=== PATIENT | female | born 1985 | race Caucasian/White ===

== ENCOUNTER 2023-05-11 11:47 | Emergency (ER) | payer OTHER, SELFPAY ==
--- NOTE | ~2023-05-11 | XR_ITS ---
EXAMINATION: XR ANKLE, RIGHT CLINICAL INFORMATION: Right ankle pain, injury COMPARISON: None available. TECHNIQUE: AP, lateral, and mortise views of the right ankle. FINDINGS: No fracture. Alignment is anatomic. No erosions. Joint spaces are maintained. Soft tissues are normal. Minimal spurring of the anterior distal tibia at the tibiotalar joint. XR/XR ankle RT min 3V IMPRESSION: No evidence for acute process.
--- NOTE | 2023-05-11 12:15 | ED_ITS ---
HPI - General Adult General Chief complaint: Extremity Injury, Lower Stated complaint: TWISTED R ANKLE Time Seen by Provider: 05/11/23 14:50 Source: patient and EMS Mode of arrival: EMS Limitations: no limitations History of Present Illness HPI narrative: Patient is a 37 year old assigned female at with no reported medical history presenting to the emergency department today with right ankle pain. Patient states that she twisted her right ankle going down stairs and now it hurts. Patient denies any head strike, loss of consciousness, dizziness, lightheadedness, abdominal pain, nausea, vomiting, fever, chills, blurry vision, double vision, loss of vision, chest pain, difficulty breathing, shortness of breath, back pain, night sweats, pain with urination, increased urinary frequency, increased urinary urgency, blood in her urine or stool, syncope or a near syncopal episode, bowel incontinence, bladder incontinence, bowel retention, bladder retention, or any other complaints at this time. Onset (ago): minute(s) Location: right and lower extremity Radiation: non-radiation Severity: mild Severity scale (1-10): 3 Quality: aching and dull Pain Consistency: constant Relieving factors: none Exacerbating factors: none Associated symptoms: denies other symptoms Treatments prior to arrival: none Related Data Allergies Allergy/AdvReac Type Severity Reaction Status Date / Time No Known Allergies Allergy Verified 05/11/23 12:18 Review of Systems Constitutional: Constitutional: Reports no additional constitutional complaints, Denies chills, Denies fever(s) and Denies night sweats Eyes: Eyes: Reports no additional eye complaints, Denies blurry vision, Denies change in vision, Denies diplopia, Denies eye discharge, Denies loss of vision and Denies eye pain ENT: Denies dizziness Cardiovascular: Cardiovascular: Reports no additional cardiovascular complaints, Denies chest pain, Denies lightheadedness, Denies Loss of Consciousness and Denies dyspnea Respiratory: Respiratory: Reports no additional respiratory complaints and Denies dyspnea Gastrointestinal: Gastrointestinal: Reports no additional gastrointestinal complaints, Denies abdominal pain, Denies melena, Denies hematochezia, Denies change in bowel habits and Denies change in stool character Genitourinary: Genitourinary: Denies hematuria, Denies urinary frequency, Denies dysuria, Denies urinary incontinence, Denies urinary hesitancy and Denies urinary urgency Musculoskeletal: Musculoskeletal: Reports no additional musculoskeletal complaints, Denies numbness and Denies tingling Comments: right ankle pain Neurologic: Denies dizziness, Denies loss of vision, Denies numbness and Denies tingling Psychiatric: Psychiatric: Reports no additional psychiatric complaints Endocrine: Endocrine: Reports no additional endocrine complaints Hematologic/Lymphatic: Hematologic/Lymphatic: Reports no additional hematologic/lymphatic complaints Allergic/Immunologic: Allergic/Immunologic: Reports no additional allergic/immunologic complaints PMFSH Past Medical History Attestation statement: The following information was validated with the patient. Source: old records reviewed and nursing notes reviewed Social History Social History Advance Directives: No Advance Directives Information Provided: No Physical Exam ED Vital Signs: Vital Signs - 24 hr 05/11/23 12:17 05/11/23 15:10 Temperature 97.6 F 97.6 F Pulse Rate 94 94 Respiratory Rate 18 20 Blood Pressure 122/86 122/86 Pulse Oximetry 95 95 Oxygen Delivery Method Room Air BMI result Body Mass Index 42.5 Const General: cooperative, no acute distress, alert and awake Nutritional Appearance: well nourished Orientation/consciousness: patient oriented x3 Limitations: no limitations HENMT Head: Yes normal to inspection and Yes atraumatic Ears: hearing grossly normal bilaterally and external ears normal General nose exam: Normal external nose present, no nasal discharge noted and no epistaxis Face and sinus: Yes normal facial exam, No abrasion and No laceration Mouth: Normal oral and palatal mucosa present, no drooling and no muffled voice Eyes General: appearance normal, both eyes and all related structures Periorbital: periorbital findings normal Eyelids: Yes eyelids normal Conjunctivae: conjunctivae normal Pupils: Equal, round and reactive pupils present EOM: EOMs intact bilaterally Neck Neck: Yes normal visual inspection, Yes full ROM and Yes no lymphadenopathy Chest Chest palpation & inspection: normal inspection of the chest Resp Effort & Inspection: normal respiratory effort and able to speak in complete sentences GI Inspection: Yes normal to inspection Neuro General: patient oriented x3 and moves all extremities Cranial nerves: Yes Equal, round and reactive pupils present Cognition (Neuro): normal cognition Motor exam (neuro): 5/5 motor strength present throughout Sensory Exam: Normal double simultaneous stimulation for sensation Coordination: [id number] test normal Extrem Other: minimal swelling present to the right ankle General: Yes full ROM and Yes capillary refill normal Psych Appearance: grossly normal Mental Status: mental status grossly normal Affect: normal affect Attitude: cooperative Thought process: Normal thought process present Thought content: Normal thought content present Insight: Good insight present (Psych) Course Course Course Narrative: RME performed by Digna Riggins PA-C. Patient is a 37 year old assigned female at presenting to the emergency department with right ankle pain. Detailed physical exam and review of systems are deferred to the automotive airconditioning mechanic. Imaging ordered. Patient placed back in the waiting room pending room availability and results. Procedures Orthopedic Splinting/Casting Injury #1: Side: right Lower Extremity Injury Location: ankle Lower Extremity Immobilizer: boot orthosis Medical Decision Making Medical Decision Making MDM Narrative: Patient is a 37 year old assigned female at with no reported medical history presenting to the emergency department today with right ankle pain. Patient's physical exam was as noted in the physical exam portion of this note. Patient's right ankle x-ray showed no acute process. I explained my physical exam findings as well as all test results to the patient. I answered all questions asked by the patient. Patient's right ankle was placed in a walking boot, without incident. Patient's PMS was intact prior to and after boot placement. I stressed the importance of the patient taking her medication as prescribed. I stressed the importance of the patient following up with her primary care provider. I stressed the importance of the patient returning to the emergency department immediately if her symptoms were to worsen or if she were to develop any dizziness, shortness of breath, difficulty breathing, chest pain, blurry vision, loss of vision, nausea, vomiting, abdominal pain, fever, chills, back pain, or any other complaints. Patient verbalized agreement and understanding with this treatment plan and discharge. Differential Diagnosis Differential Diagnoses: The differential diagnosis associated with the presentation includes Right ankle sprain Right ankle strain Right ankle fracture Admission/Observation Consideration of admission/observation: Escalation of care including admission/observation considered Patient would have been admitted to the hospital had her work up had any f indings where hospital admission was appropriate and her clinical presentation warranted hospital admission. Independent Interpretation I performed an independent interpretation of an: Plain X-Ray Interpretation: My interpretation is in agreement with the radiologist's impression of this imaging study. EXAMINATION: XR ANKLE, RIGHT CLINICAL INFORMATION: Right ankle pain, injury COMPARISON: None available. TECHNIQUE: AP, lateral, and mortise views of the right ankle. FINDINGS: No fracture. Alignment is anatomic. No erosions. Joint spaces are maintained. Soft tissues are normal. Minimal spurring of the anterior distal tibia at the tibiotalar joint. XR/XR ankle RT min 3V IMPRESSION: No evidence for acute process. Dictated By: Chu Rashid Signed By: Electronically signed by Chu Rashid 05/11/23 2147 Radiology Impression Discussion of test interpretation with radiology: I have reviewed the radiologist's reading. Independent Historian Clinical information obtained from an independent historian. History obtained from or confirmed by: EMS (EMS provided additional history and confirmed the history provided by the patient.) Discharge Plan Discharge Clinical Impression: Ankle sprain and strain Patient Disposition: Home, Self-Care Instructions: Ankle Sprain (DC) Additional Instructions: Follow up with your primary care provider. Return to the emergency department immediately if your symptoms worsen or if you develop any dizziness, shortness of breath, difficulty breathing, chest pain, blurry vision, loss of vision, nausea, vomiting, abdominal pain, fever, chills, back pain, or any other complaints. Referrals: [facility] [Provider Group] (Call to establish and follow up with a primary care provider. If you already have a primary care provider, please follow up with them.) [facility] Primary Hai Alves [Provider Group] [facility] Primary Ann Alves [Provider Group] Stand Alone Forms: Work/School Release Interventions: ED Discharge Assessment Last Done: 05/11/23 15:10 Discharge Date/Time: 05/11/23 15:20 Print Language: [place]
[2023-05-11 12:17] VITALS: BP 122/86; PULSE 94; RESP 18; TEMP 36.4; O2SAT 95; BMI 42.5
[2023-05-11 15:10] VITALS: BP 122/86; PULSE 94; RESP 20; TEMP 36.4; O2SAT 95
== END 2023-05-11 15:20 | disposition home or self-care (01) ==
LOC: HO.ED 15:15
PROVIDERS: Emergency Provider Emergency Medicine
DX: S93.401A Sprain of unspecified ligament of right ankle, initial encounter (principal); S96.911A Strain of unspecified muscle and tendon at ankle and foot level, right foot, initial encounter; X50.1XXA Overexertion from prolonged static or awkward postures, initial encounter; Y93.9 Activity, unspecified; Y92.9 Unspecified place or not applicable; Y99.9 Unspecified external cause status
CPT/HCPCS: 73610; 99282; 99283

== ENCOUNTER 2025-01-27 16:30 | Emergency (ER) | payer OTHER, SELFPAY ==
--- OUTSIDE RECORDS SUMMARY | 2025-01-27 15:45 | XMS_ITS | Encounter Summary ---
Author Organization [employer] Address [address] [place] [address] Care Team Providers Care Mainframe Software Developer Name Role Phone Lisa Oh MD Primary Care Provider [phone] Reason for Visit * Reason Comments Diabetes Mellitus F/u diabetes Encounter Details Date Type Department Care Team (Late st Contact Info) Description 01/27/2025 3:45 PM EST Office Visit Endocrinology - [place] [address] [place] [address] Tonja Oh PA [address] [place] [address] Type 2 diabetes mellitus without complication, without long-term current use of insulin (CMS/HCC V24, CMS/HCC V28) (Primary Dx) Social History Tobacco Use Types Packs/Day Years Used Date Smoking Tobacco: Every Day Cigarettes Smokeless Tobacco: Never Alcohol Use Standard Drinks/Week Comments Yes 0 (1 standard drink = 0.6 oz pur e alcohol) Housing Instability Answer Date Recorde d Are you worried that in the next 2 months you may not have stable housing? No 05/20/2024 Food Access & Nutrition Answer Date Rec orded Do you have access to a vari ety of food including fruits and vegetables? Patient declined 05/20/2024 Access to Healthcare Answer Date Record ed Within the last 3 months, soha del real many times did you visit the emergency department for your medical care? 2 05/20/2024 Health Literacy Answer Date Recorded How often do you need to hav e someone help you when you read instructions, pamphlets, or other written material from your doctor or pharmacy? Patient declined 05/20/2024 Caregiver: How often do you need to have someone help you when you read instructions, pamphlets, or other written material from your doctor or pharmacy? Not on file 025 Financial Risk Answer Date Recorded How hard is it for you to pa y for the very basics like food, housing, medical care, and air conditioning / heating? Very hard 05/20/2024 Transportation Answer Date Recorded Has the lack of transportati on kept you from meetings, work, or from getting things needed for daily living? No Has the lack of transportati on kept you from medical appointments or from getting medications? No 05/20/2024 Social Isolation Answer Date Recorded How often do you feel lonely or isolated from ose around you? Rarely 05/20/2024 Food Risk Answer Date Recorded Within the past 12 months we worried whether our food would run out before we got money to buy more. Patient declined Within the past 12 months th e food we bought just didn't last and we didn't have money to get more. Often true 05/06 Dependent Care Answer Date Recorded Do you need help finding or paying for care for your loved ones. For example, early childhood or elderly care for an older adult? No 05/20/2024 Education Answer Date Recorded Do you think completing more education or training, like finishing a GED, going to college, or learning a trade, would be helpful for you? No 05/20/2024 Employment and Income Answer Date Recor ded During the last four weeks, have you been actively looking for work? Patient declined 05/20/2024 Living Situation Answer Date Recorded What is your living situation? Unrecognized valu e 05/20/2024 Comments No Sex and Gender Information Value Date Recorded Sex Assigned at Female 05/20/2024 12:01 PM EDT Legal Sex Female 5:45 PM EST Gender Identity Female 05/20/2024 12:01 PM EDT Sexual Orientation Not on file documented as of this encounter Last Filed Vital Signs Vital Sign Reading Time Taken Comments Blood Pressure 101/63 01/27/2025 3:45 PM EST Pulse 84 01/27/2025 3:45 PM EST Temperature - - Respiratory Rate 13 01/27/2025 3:45 PM EST Oxygen Saturation - - Inhaled Oxygen Concentration - - Weight 72.6 kg (160 lb) 01/27/2025 3:45 PM EST Height 160 cm (5' 3 ) 01/27/2025 3:45 PM EST Body Mass Index 28.34 01/27/2025 3:45 PM EST documented in this encounter Ordered Prescriptions Prescription Sig Dispense Quantity Refills Last Filled Start Date End Date metFORMIN XR (GLUCOPHAGE-XR) 500 mg 24 hr tablet Take 1 tablet twice daily with food 60 each 2 01/27/2025 documented in this encounter Progress Notes * ASHLEY Del Toro - 01/27/2025 3:45 PM EST Blood sugar at 586 in the office. Patient will go to [facility] ER * ASHLEY Del Toro - 01/27/2025 3:45 PM EST CHIEF COMPLAINT: Diabetes Mellitus (F/u diabetes) IDENTIFIER: Gerry Goss is a 39 y.o. old female HPI: Patient is a 39-year-old female presents today for a follow up regarding new onset of diabetes. Has not used insulin in the past. Family history includes both parents, with insulin-dependent type 2 diabetes in maternal and paternal grandparents. She has a history of prediabetes. Denies any recent hospitalization as a result of diabetes. Current diabetic regimen: Has not used Ozempic and metformin over the last a few months after running out of refills. She also had some insurance coverage issues. Patient admits to poor compliance and wishes she pay closer attention to her health. Current glucose at 586, had Rhonda's with a regular soda up hour and a half before coming to the office. Patient complains of vision changes ongoing for the last a few months along with nausea and chronicabdominal pain. No acute symptoms as of today. She denies fevers and chills. She also complains ofpolyuria, polydipsia. Not on statins, Triglycerides improved. Has been drinking alcohol, socially, a few drink per month Had an eye exam in November 2023 Kidney function, liver enzymes within normal range. BP today 101/63 Lab Results Component Value Date HGBA1C 12.3 (H) 04/25/2024 ROS: GENERAL: No malaise, significant weight loss or fever HEENT: No changes in hearing or vision RESPIRATORY: No cough, wheezing or shortness of breath CARDIOVASCULAR: No chest pain, leg swelling or palpitations GI: No abdominal discomfort ENDO: see HPI NEURO: No persistent headache, syncope PAST MEDICAL HISTORY: Patient Active Problem List Diagnosis Date Noted Obesity (BMI 30.0-34.9) 02/08/2024 ADHD (attention deficit hyperactivity disorder) 02/07/2024 Myopia 05/02/2016 Retinal drusen of right eye 05/02/2016 Alcohol consumption binge drinking 03/31/2016 Smoking 03/31/2016 Diabetes ([facility] V24, [facility] V28) 07/08/2015 Carpal tunnel syndrome on right 03/04/2015 Obesity, morbid, BMI 40.0-49.9 ([facility] V24, [facility] V28) 07/03/2014 Ovarian cyst 12/02/2013 Migraine 11/03/2008 Past Surgical History: Procedure Laterality Date APPENDECTOMY age 11 PROCEDURE: MD APPENDECTOMY COLONOSCOPY W/ BIOPSIES 11/09/08 PROCEDURE: MD COLONOSCOPY W/BIOPSY SINGLE/MULTIPLE; COMMENT: Normal Flex Sig, good preparation, random colon biopsy taken:Normal LASER ABLATION OF THE CERVIX genitial PROCEDURE: MD CAUTERY CERVIX LASER ABLATION TONSILLECTOMY ADENOIDECTOMY, BILATERAL MYRINGOTOMY AND TUBES PROCEDURE: MD TONSILLECTOMY & ADENOIDECTOMY <AGE 12 SOCIAL HISTORY: Social History Tobacco Use Smoking status: Every Day Current packs/day: 0.30 Types: Cigarettes Smokeless tobacco: Never Substance Use Topics Alcohol use: Yes FAMILY HISTORY: Family History Problem Relation Name Age of Onset Diabetes Mother 40 Pt was adopted, FH unknown Hypertension Mother Hypertension Father Diabetes Sister Cataracts Paternal Grandfather Blindness Paternal Grandmother Cataracts Paternal Grandmother Ovarian cancer Aunt Fathers side Glaucoma Neg Hx Macular degeneration Neg Hx Strabismus Neg Hx Breast cancer Neg Hx Colon cancer Neg Hx Uterine cancer Neg Hx Family Status Relation Name Status Mother hiv, DM Father Alive hepatitis Sister Alive 2,half sister PGF (Not Specified) PGM (Not Specified) Aunt Fathers side Alive Neg Hx (Not Specified) Brother Alive 2,healthy No partnership data on file MEDICATIONS DISCONTINUED/REORDERED: Medications Discontinued During This Encounter Medication Reason metFORMIN XR (GLUCOPHAGE-XR) 500 mg 24 hr tablet Reorder semaglutide (Ozempic) 2 mg/dose (8 mg/3 mL) injection pen ACTIVE MEDICATIONS: Outpatient Medications Marked as Taking for the 01/27/25 encounter (Office Visit) with ASHLEY Del Toro Medication Sig Dispense Refill albuterol HFA (PROAIR HFA ; PROVENTIL HFA ; VENTOLIN HFA) 90 mcg/actuation inhaler Inhale 2 Puffs into the lungs 4 times daily as needed for Cough, Wheezing or Shortness of Breath. BIOTIN ORAL Take by mouth 1 (one) time each day. blood sugar diagnostic (FreeStyle Lite Strips) test strip Check sugars once a day E11.9 100 each 3 blood-glucose calib. control (BLOOD-GLUCOSE CALIBRAT CONTROL [facility]) E11.65 to check sugars once daily blood-glucose meter kit E11.65 to check sugars once daily cholecalciferol (VITAMIN D-3) 1,250 mcg (50,000 unit) capsule Take 1 capsule (50,000 Units total) by mouth 1 (one) time per week. 12 capsule 0 fluticasone propionate (FLONASE) 50 mcg/actuation nasal spray by Nasal route. 2 sprays to each nostril daily FREESTYLE LANCETS [facility] E11.65 to check sugars once daily metFORMIN XR (GLUCOPHAGE-XR) 500 mg 24 hr tablet Take 1 tablet twice daily with food 60 each 2 [DISCONTINUED] metFORMIN XR (GLUCOPHAGE-XR) 500 mg 24 hr tablet Take 1 tablet twice daily with food60 each 11 [DISCONTINUED] semaglutide (Ozempic) 2 mg/dose (8 mg/3 mL) injection pen Use 2mg once weekly 3 mL 3 ALLERGIES: Other and Hydrocodone PHYSICAL EXAM: Blood pressure 101/63, pulse 84, resp. rate 13, height 1.6 m (63 ), weight 72.6 kg (160 lb). Body mass index is 28.34 kg/m??. BMI is greater than 25.0 (above the normal range) - see Plan APPEARANCE: Alert and in no acute distress PYSCH: She is teary-eyed NEURO: Awake, alert LABS: Lab Results Component Value Date HGBA1C 12.3 (H) 04/25/2024 HGBA1C 10.8 (H) 02/08/2024 HGBA1C 8.1 (A) 09/05/2023 Lab Results Component Value Date CREATININE 1.05 04/25/2024 MICROALBCREA abstracted 09/05/2023 Lab Results Component Value Date GLUCOSE 586 01/27/2025 IMAGING: IMPRESSION: 1. Type 2 diabetes mellitus without complication, without long-term current use of insulin ([facility], [facility] V28) PLAN: Diabetes: A1c 12.3% previously. Will need to update labs. Ordered. Discussed ER visit versus getting insulin in the office to help lower sugars. With ongoing discussion, patient wishes to go to the ER, will go to [facility]. Given moderately elevated sugars and current symptoms, ER evaluation is reasonable. Once she is discharged, she will follow-up with our office again, within 1 to 2 weeks. Discussed long-acting insulin . Metformin already sent to pharmacy Hold off on Ozempic given abdominal pain currently. Discussed diet and exercise, cut back on carbohydrates avoid sugary snacks and drinks, add more protein diet along with healthy fats and fiber. Approaches towards weight loss are discussed, including burning more calories than one takes in by frequent, small meals, portion control and avoiding eating before bedtime. Blood pressure control reasonable. Final disposition pending. Return here in 1 to 2 weeks for reevaluation of diabetes. Medication and lab orders: Orders Placed This Encounter Procedures Basic metabolic panel POC glucose manually resulted None ASHLEY Lindsay on 01/27/2025 at 4:24 PM EST documented in this encounter Plan of Treatment Upcoming Encounters Date Type Department Care Team (Late st Contact Info) Description 02/06/2025 11:30 AM EST Office Visit Adult Medicine [address] [phone] Lisa Oh MD [address] [place] [address] 02/16/2025 3:45 PM EST Office Visit Endocrinology [address] [phone] Tonja Oh PA [address] [place] [address] Scheduled Orders Name Type Priority Associated Diagnoses Orde r Schedule Basic metabolic panel Lab Routine Type 2 diabetes mellitus without complication, without long-term current use of insulin ([facility] V24, [facility] V28) Expected: 01/27/2025, Expires: 01/27/2026 documented as of this encounter Procedures Procedure Name Priority Date/Time Associated Diagnosis Comments POC GLUCOSE Routine 01/27/2025 3:53 PM EST Type 2 diabetes mellitus without complication, without long-term current use of insulin ([facility] V24, [facility] V28) documented in this encounter Results * POC glucose manually resulted (01/27/2025 3:53 PM EST) Glucose POC 586 mg/dL Blood Capillary blood specimen / Unknown 01/27/2025 3:53 PM EST Tonja RAMIREZ POINT OF CARE TEST ENTER/EDIT OR DERABLES Final Result documented in this encounter Visit Diagnoses Diagnosis Type 2 diabetes mellitus without complication, without long-term current use of insulin ([facility] V24, [facility] V28)- Primary documented in this encounter Discontinued Medications Medication Sig Discontinue Reason Start Date End Da te metFORMIN XR (GLUCOPHAGE-XR) 500 mg 24 hr tablet Take 1 tablet twice daily with food Reorder 04/28/2024 01/27/2025 semaglutide (Ozempic) 2 mg/dose (8 mg/3 mL) injection penIndications:Type 2 diabetes mellitus without complication, without long-term current use of insulin ([facility] V24, [facility] V28) Use 2mg once weekly 05/26/2024 01/27/2025 documented as of this encounter Additional Health Concerns Assessment Noted Time PHQ-9 Depression Total Score: 0 05/21/19 25 12:05 PM EDT documented as of this encounter Care Teams Mainframe Software Developer Relationship Specialty Start Date End Date Lisa Oh MD [address] [place] [address] PCP - General Internal Medicine 03/02/22 documented as of this encounter
[2025-01-27 16:33] VITALS: BP 129/70; PULSE 87; RESP 20; TEMP 36.6; O2SAT 100; BMI 29.0
--- NOTE | 2025-01-27 16:43 | ED.GENADULT ---
HPI - General Adult General Chief complaint: General Medical Stated complaint: High blood sugar/586 Time Seen by Provider: 01/27/25 16:57 Source: patient Mode of arrival: ambulatory Limitations: no limitations History of Present Illness ED Provider: OTILIA DOW narrative: This is a pleasant 39-year-old female with history of diabetes she was on metformin Ozempic in the past but had insurance issues. She has not been able to take any medications in many months although sometimes she will medically take stretched out metformin. She has been suffering from increased thirst, urinary frequency over the past several weeks. She denies any fevers. She has no pain. She was referred by her insulation estimator today given blood sugars in the 500s. She has never been on insulin before. She does not have a glucometer at home MD complaint: Hyperglycemia Onset (ago): month(s) Radiation: non-radiation Severity: moderate Relieving factors: none Exacerbating factors: eating Associated symptoms: other (Polyuria, polydipsia) Treatments prior to arrival: none Related Data Previous Rx's ?Medication ?Instructions ?Recorded alcohol swabs 1 pad topical QIDACHS #100 ea 01/27/25 blood sugar diagnostic (FreeStyle #100 ea 01/27/25 Lite Strips) blood-glucose meter (FreeStyle #1 ea 01/27/25 Lite Meter kit) insulin glargine 100 unit/mL (3 10 unit (0.1 mL) subcut DAILY #15 01/27/25 mL) subcutaneous pen (Lantus mL Solostar U-100 Insulin) lancets 28 gauge (FreeStyle #100 ea 01/27/25 Lancets) metformin 500 mg tablet 500 mg PO BID #60 tabs 01/27/25 pen needle, diabetic 32 gauge x #100 ea 01/27/25 1/4 Allergies Allergy/AdvReac Type Severity Reaction Status Date / Time No Known Allergies Allergy Verified 01/27/25 16:35 Review of Systems Review of Systems: Yes all other systems are reviewed and are negative PMFSH Past Medical History Attestation statement: The following information was validated with the patient. Source: old records reviewed Medical History Diabetes Social History Social History (Updated 01/27/25 @ 17:58 by Jasmin Pal DO) Patient Tobacco Use Status: Tobacco use Unknown Use of substances other than those prescribed or required for medical reasons: No Advance Directives: No Advance Directives Information Provided: No Physical Exam ED Vital Signs: Vital Signs - 24 hr 01/27/25 16:33 01/27/25 18:00 01/27/25 19:00 Temperature 97.9 F 98.5 F 98.5 F Pulse Rate 87 80 80 Respiratory Rate 20 14 Blood Pressure 129/70 102/59 L 102/59 L Pulse Oximetry 100 98 98 Oxygen Delivery Method Room Air Room Air Room Air BMI result Body Mass Index 29.0 Appearance: Alert. Oriented X3. No acute distress. Eyes: Pupils equal, round and reactive to light. ENT: Pharynx normal. Neck: Normal inspection. Neck supple. CVS: Normal heart rate and rhythm. Pulses normal. Respiratory: No respiratory distress. Breath sounds normal. Abdomen: Soft and nontender. Skin: Skin warm and dry. Normal skin color. Normal skin turgor. Extremities: No lower extremity edema. No calf ttp Neuro: Oriented X 3. No motor deficit. No sensory deficit. CN2-12 intact Course Course Course Narrative: RME: 39-year-old female presents to ED for uncontrolled diabetes. Patient is supposed to be on metformin but due to lack of insurance not able to take medications. Patient was sent from endocrinology clinic due to consistent glucose reading over 500. Chief eyes POC 543. Charge nurse made aware labs ordered Medications Administered Discontinued Medications Generic Name Dose Route Start Last Admin Trade Name Freq PRN Reason Stop Dose Admin Lactated Ringer's 1,000 mls @ 999 mls/hr 01/27/25 16:57 01/27/25 18:12 Lr IV 01/27/25 17:57 Infused .Q1H1M ONE Infusion Lactated Ringer's 1,000 mls @ 999 mls/hr 01/27/25 16:57 01/27/25 18:41 Lr IV 01/27/25 17:57 Infused .Q1H1M ONE Infusion Insulin Human Regular 5 unit 01/27/25 17:25 01/27/25 17:46 Insulin Regular, Human 100 Unit/Ml 10 Ml Vial IVPUSH 01/27/25 17:26 5 unit ONCE ONE Administration Medical Decision Making Medical Decision Making MDM Narrative: This is a 39-year-old female with uncontrolled diabetes due to insurance issues though her insurance is working now. She has signs of polyuria and polydipsia. She has no chest pain, abdominal pain, fevers. At this time suspect her hypoglycemia is due to unfortunately noncompliance. I am going to obtain basic labs, hydrate, give IV insulin and monitor for 1-2 hours. If she responds well and is not in DKA I will start her on metformin 500 b.i.d. as well as Lantus 10 units daily. I will prescribe her a glucometer she does have an insulation estimator to follow up with Differential Diagnosis Differential Diagnoses: The differential diagnosis associated with the presentation includes Hypoglycemia, LADARIUS, DKA Admission/Observation Consideration of admission/observation: Escalation of care including admission/observation considered She has no signs of DKA her blood sugars responded to insulin I am going to start her on metformin as well as Lantus and prescribe her a glucometer blood sugar stable stable for DC Lab Data MDM Lab Attestation statement: I reviewed the patient's lab results. No beta, normal pH, no signs of DKA 01/27/25 16:54 01/27/25 16:54 Labs: Lab Results 01/27/25 01/27/25 01/27/25 Range/Units 16:41 16:54 16:58 WBC 6.7 (4.8-10.8) X10*3/uL RBC 4.44 (4.20-5.50) X10*6/uL Hgb 14.3 (12.0-16.0) g/dl Hct 41.7 (37.0-47.0) % MCV 93.9 (80.0-98.0) fL MCH 32.2 (27.0-33.0) pg MCHC 34.3 (31.0-35.0) g/dl RDW 12.2 (11.0-16.0) % Plt Count 221 (160-400) X10*3/uL MPV 10.4 (9.4-12.3) fL Immature Gran % (Auto) 0.1 (0.0-0.4) % Neut % (Auto) 59.5 (45-73) % Lymph % (Auto) 31.5 (20-40) % [place] % (Auto) 7.5 (2-11) % Eos % (Auto) 1.0 (0-4) % Baso % (Auto) 0.4 (0-2) % Lymph # (Auto) 2.1 (1.2-4.9) X10*3/uL [place] # (Auto) 0.5 (0.1-1.2) X10*3/uL Eos # (Auto) 0.1 (0.0-0.4) X10*3/uL Baso # (Auto) 0.0 (0.0-0.2) X10*3/uL Abs Immat Gran (auto) 0.01 (0.00-0.03) X10*3/uL Absolute Neuts (auto) 4.0 (2.0-8.3) x10*3/uL Absolute Nucleated RBC 0.000 (0.0-0.012) X10*3/uL Nucleated RBC % (auto) 0.0 (0.0-0.2) /100WBC VBG pH 7.38 (7.32-7.43) VBG pCO2 40 mmHg VBG pO2 31 mmHg VBG HCO3 24 (22-26) mmol/L VBG O2 Saturation 45.0 % VBG Base Excess -0.9 mmol/L Sodium 134 L (135-145) mmol/L Potassium 4.0 (3.3-5.1) mmol/L Chloride 102 (96-108) mmol/L Carbon Dioxide 25 (22-29) mmol/L Anion Gap 11 L (12-20) BUN 9 (9-16) mg/dL Creatinine 0.96 (0.5-1.4) mg/dL Estim Creat Clear Calc 73.1 Estimated GFR > 60 POC Glucose 543 H* (60-115) mg/dL Random Glucose 587 H* (60-115) mg/dL Calcium 8.7 (8.4-10.2) mg/dL Total Bilirubin 0.4 (0.0-1.0) mg/dL AST 15 (5-31) U/L ALT 24 (0-31) U/L Alkaline Phosphatase 76 (39-117) U/L Total Protein 6.3 L (6.5-8.0) g/dL Albumin 3.9 (3.5-5.0) g/dL Beta-Hydroxybutyrate 0.10 (0.02-0.27) mmol/L Beta HCG, Quant < 2 mIU/mL Urine Color Urine Appearance Urine pH (5.0-9.0) Ur Specific [place] (1.005-1.025) Urine Protein (Neg-Trace) mg/dL Urine Glucose (UA) (Negative) mg/dL Urine Ketones (Negative) mg/dL Urine Blood (Negative) Urine Nitrite (Negative) Ur Leukocyte Esterase (Negative) Urine RBC (0-2) /HPF Urine WBC (0-5) /HPF Ur Squamous Epith Cells (0-2) /HPF Urine Bacteria (None Seen) Hyaline Casts (0-2) /LPF 01/27/25 01/27/25 Range/Units 17:53 18:44 WBC (4.8-10.8) X10*3/uL RBC (4.20-5.50) X10*6/uL Hgb (12.0-16.0) g/dl Hct (37.0-47.0) % MCV (80.0-98.0) fL MCH (27.0-33.0) pg MCHC (31.0-35.0) g/dl RDW (11.0-16.0) % Plt Count (160-400) X10*3/uL MPV (9.4-12.3) fL Immature Gran % (Auto) (0.0-0.4) % Neut % (Auto) (45-73) % Lymph % (Auto) (20-40) % [place] % (Auto) (2-11) % Eos % (Auto) (0-4) % Baso % (Auto) (0-2) % Lymph # (Auto) (1.2-4.9) X10*3/uL [place] # (Auto) (0.1-1.2) X10*3/uL Eos # (Auto) (0.0-0.4) X10*3/uL Baso # (Auto) (0.0-0.2) X10*3/uL Abs Immat Gran (auto) (0.00-0.03) X10*3/uL Absolute Neuts (auto) (2.0-8.3) x10*3/uL Absolute Nucleated RBC (0.0-0.012) X10*3/uL Nucleated RBC % (auto) (0.0-0.2) /100WBC VBG pH (7.32-7.43) VBG pCO2 mmHg VBG pO2 mmHg VBG HCO3 (22-26) mmol/L VBG O2 Saturation % VBG Base Excess mmol/L Sodium (135-145) mmol/L Potassium (3.3-5.1) mmol/L Chloride (96-108) mmol/L Carbon Dioxide (22-29) mmol/L Anion Gap (12-20) BUN (9-16) mg/dL Creatinine (0.5-1.4) mg/dL Estim Creat Clear Calc Estimated GFR POC Glucose 219 H (60-115) mg/dL Random Glucose (60-115) mg/dL Calcium (8.4-10.2) mg/dL Total Bilirubin (0.0-1.0) mg/dL AST (5-31) U/L ALT (0-31) U/L Alkaline Phosphatase (39-117) U/L Total Protein (6.5-8.0) g/dL Albumin (3.5-5.0) g/dL Beta-Hydroxybutyrate (0.02-0.27) mmol/L Beta HCG, Quant mIU/mL Urine Color Yellow Urine Appearance Clear Urine pH 7.0 (5.0-9.0) Ur Specific [place] >= 1.030 H (1.005-1.025) Urine Protein Negative (Neg-Trace) mg/dL Urine Glucose (UA) >=1000 H (Negative) mg/dL Urine Ketones Negative (Negative) mg/dL Urine Blood Negative (Negative) Urine Nitrite Negative (Negative) Ur Leukocyte Esterase Negative (Negative) Urine RBC 0-2 (0-2) /HPF Urine WBC 0-5 (0-5) /HPF Ur Squamous Epith Cells 0-2 (0-2) /HPF Urine Bacteria None Seen (None Seen) Hyaline Casts 0-2 (0-2) /LPF External Record Review External record reviewed: Outpatient record Prescription Management I considered prescription management with: Other Discharge Plan Discharge Clinical Impression: Hyperglycemia due to diabetes mellitus Patient Disposition: Home, Self-Care Instructions: Diabetic Hyperglycemia (ED) Additional Instructions: You should be checking her sugars at least 3 times a day Return for any worsening symptoms such as consistent blood sugars greater than 400, or any other concerning signs. You should be following up with your doctor or insulation estimator The medications we prescribed you today are really a bridge until he can get better control with your outpatient providers Monitor your diet you should be cutting down any sugary foods and carbohydrates. you should be carrying either glucose gel or some form of sugary sweets in case her blood sugar drops Prescriptions: New (DME) FreeStyle Lite Strips Strip Qty: 100 0RF Rx Instructions: Test four times a day or as directed. (DME) blood-glucose meter [FreeStyle Lite Meter] Kit Qty: 1 0RF Rx Instructions: As Directed alcohol swabs Pads, Medicated 1 pad TOPICAL QIDACHS Qty: 100 0RF Rx Instructions: Use four times a day or as directed. insulin glargine [Lantus Solostar U-100 Insulin] 100 unit/mL (3 mL) insulin pen 10 unit SUBCUT DAILY Qty: 15 0RF (DME) pen needle, diabetic 32 gauge x 1/4 needle Qty: 100 0RF Rx Instructions: Use four times a day or as directed. (DME) lancets [FreeStyle Lancets] 28 gauge misc Qty: 100 0RF Rx Instructions: Test four times a day or as directed. metformin 500 mg tablet 500 mg PO BID Qty: 60 3RF Interventions: ED Discharge Assessment Last Done: 01/27/25 19:00 Discharge Date/Time: 01/27/25 19:01 Print Language: Russian
[2025-01-27 16:46] LABS: Glucose, Whole Blood 543 mg/dL (60-115)
[2025-01-27 16:57] LABS: MANUAL DIFF FLAG NO
[2025-01-27 17:01] LABS: VBG HCO3 24 mmol/L (22-26); VBG O2 % Saturation 45.0 %
[2025-01-27 17:03] LABS: Venous Blood Gas Refer to POC result
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
[2025-01-27] MEDS: Lactated Ringers 1,000 ML 999 ML IV ×2 (17:12→17:48)
[2025-01-27 17:20] LABS: Hematocrit 41.7 % (37.0-47.0); Hemoglobin 14.3 g/dl (12.0-16.0); Imm Gran Abs Auto 0.01 X10*3/uL (0.00-0.03); Imm Gran Pct Auto 0.1 % (0.0-0.4); Lymphocytes Absolute Auto 2.1 X10*3/uL (1.2-4.9); Mean Corpuscular HGB Conc 34.3 g/dl (31.0-35.0); Mean Corpuscular Hemoglobin 32.2 pg (27.0-33.0); Mean Corpuscular Volume 93.9 fL (80.0-98.0); NRBC Abs Auto 0.000 X10*3/uL (0.0-0.012); NRBC Pct Auto 0.0 /100WBC (0.0-0.2); Platelet Count 221 X10*3/uL (160-400); Red Blood Count 4.44 X10*6/uL (4.20-5.50); White Blood Count 6.7 X10*3/uL (4.8-10.8)
[2025-01-27 17:26] LABS: Alanine Aminotransferase 24 U/L (0-31); Albumin Level 3.9 g/dL (3.5-5.0); Alkaline Phosphatase 76 U/L (39-117); Anion Gap 11 (12-20); Aspartate Amino Transferase 15 U/L (5-31); Blood Urea Nitrogen 9 mg/dL (9-16); Calcium 8.7 mg/dL (8.4-10.2); Carbon Dioxide 25 mmol/L (22-29); Chloride 102 mmol/L (96-108); Creatinine Clr Calc Pharmacy 73.1; Estimated Glomerular Filt Rate > 60; Potassium 4.0 mmol/L (3.3-5.1); Sodium 134 mmol/L (135-145); Total Protein 6.3 g/dL (6.5-8.0)
[2025-01-27 18:00] VITALS: BP 102/59; PULSE 80; TEMP 36.9; O2SAT 98
[2025-01-27 18:02] LABS: Appearance Urine Clear; Glucose Urine UA >=1000 mg/dL (Negative); PH 7.0 (5.0-9.0); Specific Gravity - Urine >= 1.030 (1.005-1.025); UMIC TRIGGER UACC YES
[2025-01-27 18:47] LABS: Glucose, Whole Blood 219 mg/dL (60-115)
[2025-01-27 19:00] VITALS: BP 102/59; PULSE 80; RESP 14; TEMP 36.9; O2SAT 98
== END 2025-01-27 19:01 | disposition home or self-care (01) ==
PROVIDERS: Physician Assistant; Emergency Provider Emergency Medicine; PCP Internal Medicine
DX: E11.65 Type 2 diabetes mellitus with hyperglycemia (principal); Z79.84 Long term (current) use of oral hypoglycemic drugs
CPT/HCPCS: 36415; 80053; 81001; 82010; 82803; 82947; 84702; 85025; 96361; 96374; 99284; J7120